=== PATIENT | male | born 1965 | race Caucasian/White ===

== ENCOUNTER 2022-05-25 02:08 | Day surgery (SDC) | payer OTHER, SELFPAY ==
[2022-05-24 12:40] VITALS: BMI 40.8
--- NOTE | 2022-05-25 10:30 | ECG_ITS ---
Measurements Intervals [place] Rate: 98 P: [place]: 0 QRS: -28 QRSD: 108 T: -16 QT: 379 QTc: 486 Interpretive Statements ATRIAL FIBRILLATION DELAYED PRECORDIAL R/S TRANSITION BORDERLINE T WAVE ABNORMALITY- INFERIOR LEADS ABNORMAL ECG NO PREVIOUS ECG AVAILABLE FOR COMPARISON Electronically Signed On 05-25-2022 10:56:30 CABINETMAKER HELPER by Nicholas Armenta D.O.
--- NOTE | 2022-05-25 10:45 | ECG_ITS ---
Measurements Intervals [place] Rate: 71 P: -21 CT: 195 QRS: -20 QRSD: 116 T: -5 QT: 409 QTc: 445 Interpretive Statements SINUS RHYTHM INCOMPLETE RIGHT BUNDLE BRANCH BLOCK DELAYED PRECORDIAL R/S TRANSITION BORDERLINE T WAVE ABNORMALITY- INFERIOR LEADS BASELINE ARTIFACT- I, II, AVR, AVF, V3 BORDERLINE ECG COMPARED TO ECG 05/25/2022 10:51:06 SINUS RHYTHM NOW PRESENT Electronically Signed On 05-25-2022 12:52:05 SOFTWARE DEVELOPMENT PROJECT MANAGER by Nicholas Armenta D.O.
[2022-05-25 10:53] VITALS: BMI 40.6
[2022-05-25 11:06] VITALS: BP 165/112; PULSE 92; RESP 14; TEMP 36.3; O2SAT 94
[2022-05-25 11:24] LABS: Anion Gap 8 mmol/L (8-16); Blood Urea Nitrogen 12 mg/dL (9-20); Calcium 8.9 mg/dL (8.4-10.2); Carbon Dioxide 30 mmol/L (22-30); Chloride 102 mmol/L (98-107); Estimated CRCL calculation 143 ml/min; Estimated Glomerular Filt Rate > 60; Glucose 112 mg/dL (65-110); Magnesium 1.8 mg/dL (1.6-2.3); Potassium 3.7 mmol/L (3.4-5.0); Sodium 140 mmol/L (137-145)
--- NOTE | 2022-05-25 12:09 | WPDANESEPPF ---
Anes - Initial Pre Proc Eval Procedure: Operation Date: 05/25/22 12:30 Proposed Procedures p Electrical Cardioversion - Parag Lorenzo MD Date/Time: 05/25/22 12:09 Surgeon: Parag Lorenzo MD Pre Op Diagnosis: A-fib Patient Data Age: 56 Gender: M Height: 1.93 m Weight: 151.4 kg Last Vital Signs Temp 97.3 F L 05/25/22 11:06 Pulse 92 05/25/22 11:06 Resp 14 05/25/22 11:06 BP 165/112 H 05/25/22 11:06 Pulse Ox 94 05/25/22 11:06 O2 Del Method Room Air 05/25/22 11:06 Allergies Allergy/AdvReac Type Severity Reaction Status Date / Time No Known Allergies Allergy Unknown Verified 05/24/22 13:01 Home Medications Medication Instructions Recorded Confirmed Type lisinopril 20 1 tablet PO DAILY 05/24/22 05/25/22 History mg-hydrochlorothiazide 25 mg tablet metoprolol tartrate 100 mg tablet 100 mg PO BID 05/24/22 05/25/22 History rivaroxaban 20 mg tablet (Xarelto) 20 mg PO DAILY 05/24/22 05/24/22 History valacyclovir 1 gram tablet 1,000 mg PO BID PRN fever blisters 05/24/22 05/24/22 History (Valtrex) Laboratory Tests 05/25/22 11:05 Sodium 140 mmol/L mmol/L (137-145) Potassium 3.7 mmol/L mmol/L (3.4-5.0) Chloride 102 mmol/L mmol/L (98-107) Carbon Dioxide 30 mmol/L mmol/L (22-30) Anion Gap 8 mmol/L mmol/L (8-16) BUN 12 mg/dL mg/dL (9-20) Creatinine 0.80 mg/dL mg/dL (0.7-1.3) Estim Creat Clear Calc 143 ml/min ml/min Estimated GFR > 60 (59 - ) Glucose 112 mg/dL H mg/dL (65-110) Calcium 8.9 mg/dL mg/dL (8.4-10.2) Magnesium 1.8 mg/dL mg/dL (1.6-2.3) Patient hx anesthesia problems: none Family hx anesthesia problems: none Results Review: All pre-operative results and documents have been reviewed as part of the pre-operative evaluation. [facility] Social History Social History Smoking status: Former smoker Tobacco type: cigarettes Second hand tobacco smoke exposure: No Additional smoking assessment comments: quit 20 years ago Alcohol intake: current Drinks per week: 1 Substance use: former Substance use type: marijuana Living arrangements: with family Spiritual care concerns: No Anes - Eval Final PreProcedure Day of Procedure 05/25/22 12:09 Patient weight: morbidly obese Heart: irregular rhythm Lungs: clear to auscultation Airway: Mallampati scale class III Neurological: alert and oriented Last oral intake: >/= 8 hours ASA classification: IV Emergent: no Anesthetic plan: proceed Anesthesia type and monitoring: general GIVS and standard monitoring Results Review: All pre-operative results and documents have been reviewed as part of the pre-operative evaluation. Informed Consent: The patient's anesthetic plan and its attendant risks and benefits were discussed with the patient/family/POA. Questions were solicited and answers provided to the satisfaction of the patient/family/POA.
--- NOTE | 2022-05-25 12:18 | WPDHPUPDATE1 ---
History and Physical Update Update Date/Time: 05/25/22 12:18 History and Physical has been reviewed, including an updated exam of the patient. There are NO changes in the patient's condition. Risks, benefits, and alternatives have been discussed and questions answered. Patient agrees to proceed with procedure.
--- NOTE | 2022-05-25 12:19 | WPDCARDVER ---
Cardioversion Cardioversion Date of procedure: 05/25/22 Procedure: Synchronized electrical cardioversion Pre-op diagnosis: Atrial fibrillation Post-op diagnosis: Other (Sinus rhythm) Indications: Sinus rhythm Description of procedure: Procedure start time: 12:14 Procedure end time: 12:24 Cardioversion procedure discussed with the patient, including procedural details, risks vs benefits, post-cardioversion care. Patient agrees to proceed with procedure. Written informed consent obtained. Patient taken to the endoscopy suite. Defibrillator pads placed in the anterior-posterior position. Time out performed. Sedation administered by the Anesthesiology team. Once patient was adequately sedation, synchronized electrical cardioversion was performed with 1 shock at 250 joules with mormonism of sinus rhythm. Patient remained hemodynamically stable throughout. Post-cardioversion EKG confirmed sinus rhythm as well. Patient tolerated procedure well. Sedation: Sedation administered by Dr. Quinteros with the Anesthesiology team. Findings: Successful mormonism of sinus rhythm with 1 shock at 250 joules. Conclusion: Successful synchronized electrical cardioversion.
[2022-05-25 12:35] VITALS: BP 155/106; PULSE 63; RESP 16; O2SAT 95
[2022-05-25 12:40] VITALS: BP 152/107; PULSE 64; RESP 18; O2SAT 96
[2022-05-25 12:45] VITALS: BP 151/101; PULSE 67; RESP 21; O2SAT 95
[2022-05-25 12:50] VITALS: BP 148/103; PULSE 64; RESP 13; O2SAT 95
[2022-05-25 12:55] VITALS: BP 153/95; PULSE 65; RESP 17; O2SAT 95
== END 2022-05-25 13:10 | disposition home or self-care (01) ==
PROVIDERS: PCP Family Medicine; Visit Provider Internal Medicine
PROC: 5A2204Z Restoration of Cardiac Rhythm, Single (ICD-10-PCS; principal; 2022-05-25 12:30)
DX: I48.91 Unspecified atrial fibrillation (principal); I45.10 Unspecified right bundle-branch block; R94.31 Abnormal electrocardiogram [ECG] [EKG]; I10 Essential (primary) hypertension; R06.02 Shortness of breath; R60.0 Localized edema; E78.5 Hyperlipidemia, unspecified; Z87.891 Personal history of nicotine dependence; F10.90 Alcohol use, unspecified, uncomplicated; F12.90 Cannabis use, unspecified, uncomplicated; E66.01 Morbid (severe) obesity due to excess calories; Z68.41 Body mass index [BMI] 40.0-44.9, adult; Z79.01 Long term (current) use of anticoagulants; Z82.49 Family history of ischemic heart disease and other diseases of the circulatory system
CPT/HCPCS: 36415; 80048; 83735; 92960; J2704

== ENCOUNTER 2023-09-20 09:01 | Outpatient (CLI) | payer OTHER, SELFPAY ==
[2023-09-25 14:18] VITALS: BMI 41.3
--- NOTE | 2023-09-25 14:18 | WPDHOMESLEEP ---
Sleep Study - Home Unattended Date of Study: 09/20/23 Ordering Provider: Cisco Randolph MD Interpreting Provider: Rabia Livingston, DO Home Sleep Study Type: Watch PAT Height: 1.93 m Weight: 154.221 kg Body Mass Index: 41.3 Neck Circumference (inches): 20 [place]: 7 Reason for Sleep Study Snoring Sleep History The patient is a 57-year-old male that had a sleep study ordered by his manager fitness for evaluation of sleep apnea. The patient occasionally awakens from sleep short of breath. He rarely awakens at night with heartburn, belching or cough. He frequently snores and is frequently loud enough that others complain. He rarely has trouble sleeping when he has a cold. He rarely wakes up gasping for air throughout the night. He denies having breathing problems at night observed by himself or others. He occasionally sweats excessively at night. He rarely has heart palpitations or irregular heartbeats during the night. He rarely falls asleep during the day and never while driving. He denies sleep paralysis and cataplexy. He rarely has trouble at school or work due to sleepiness. He rarely experiences vivid dreamlike scenes upon awakening or falling asleep. He denies feeling afraid of going to sleep. He rarely has nightmares. He occasionally remembers his dreams. He occasionally has thoughts racing through his mind. He rarely feels sad or depressed. He rarely has anxiety. He rarely has muscular tension. He denies noticing parts of his body jerk. He occasionally kicks during the night. He denies having crawling and aching feelings in his legs and denies having leg pain during the night. He denies grinding his teeth during sleep and denies awakening with morning jaw pain. He denies being bothered by pain during the day and denies being awakened by pain during the night. He denies waking up feeling stiff in the morning. He rarely wakes up with sore or achy muscles. He denies waking up with pain in the neck, spine or other joints. He goes to bed between 11:00 p.m. to 12:00 a.m. on both weekdays and weekends. It takes him less than 5 minutes to fall asleep. He wakes up 3-4 times throughout the night to change position or use restroom. He is able to fall back asleep within 10 minutes. He wakes up at 7:00 a.m. on weekdays and at 9:00 a.m. on the weekends. He typically gets 7 hours of sleep per night. He will stay in bed for 5-10 minutes after waking up in the morning. He currently lives with his and 2 adult children. He denies consuming any caffeinated beverages within 2 hours of bedtime. He denies engaging in physical exercise before bedtime. He denies reading before falling asleep. He will watch television before falling asleep. He will rarely take naps in the afternoon or the evening but they are not refreshing. He will have 1 large cup of caffeinated beverage per day. He quit smoking cigarettes 21 years ago. He consumes 1 or 2 alcoholic beverages per week. He will occasionally use cannabis gummies. [facility] Social History Social History Smoking status: Former smoker Tobacco type: cigarettes Second hand tobacco smoke exposure: No Additional smoking assessment comments: quit 20 years ago Alcohol intake: current Drinks per week: 1 Substance use: former Substance use type: marijuana Living arrangements: with family Spiritual care concerns: No Medications Home Medications Medication Instructions Recorded Confirmed Type lisinopril 20 1 tablet PO DAILY 05/24/22 05/25/22 History mg-hydrochlorothiazide 25 mg tablet metoprolol tartrate 100 mg tablet 100 mg PO BID 05/24/22 05/25/22 History rivaroxaban 20 mg tablet (Xarelto) 20 mg PO DAILY 05/24/22 05/24/22 History valacyclovir 1 gram tablet 1,000 mg PO BID PRN fever blisters 05/24/22 05/24/22 History (Valtrex) Sleep Procedure The sleep study was completed using [facility]
== END 2023-09-25 11:31 | disposition home or self-care (01) ==
LOC: ANHCSM 09:02
PROVIDERS: PCP Family Medicine; Visit Provider Internal Medicine Cardiovascular Disease
DX: G47.33 Obstructive sleep apnea (adult) (pediatric) (principal); I48.0 Paroxysmal atrial fibrillation; Z91.89 Other specified personal risk factors, not elsewhere classified
CPT/HCPCS: 95800

== ENCOUNTER 2023-10-12 00:04 | Day surgery (SDC) | payer OTHER, SELFPAY ==
[2023-10-11 12:16] VITALS: BMI 41.4
--- NOTE | 2023-10-12 09:00 | ECG_ITS ---
[facility] [address] Test Date: 2023-10-12 Pat Name: Warren Khanna Department: Room: Gender: M Aesthetics Instructor: ALBERT : 1965 Requested By: Radames Smith Order Number: [id number] Steve MD: Radames Aparicio M.D. Measurements Intervals [place] Rate: 82 P: 0 VT: 0 QRS: -23 QRSD: 112 T: -18 QT: 397 QTc: 466 Interpretive Statements ATRIAL FIBRILLATION LEFT AXIS DEVIATION [QRS AXIS < -20] NONSPECIFIC T-WAVE ABNORMALITY ABNORMAL RHYTHM ECG No previous ECG available for comparison Electronically Signed On 10-13-2023 07:42:46 CDT by Radames Aparicio M.D.
[2023-10-12 09:23] VITALS: BMI 40.8
[2023-10-12 09:24] VITALS: BP 162/103; PULSE 62; RESP 12; TEMP 36.2; O2SAT 98
[2023-10-12 09:52] LABS: Anion Gap 6 mmol/L (4-12); Blood Urea Nitrogen 12 mg/dL (9-20); Calcium 9.3 mg/dL (8.4-10.2); Carbon Dioxide 31 mmol/L (22-30); Chloride 102 mmol/L (98-107); Estimated CRCL calculation 142 ml/min; Estimated Glomerular Filt Rate > 60; Glucose 116 mg/dL (65-110); Magnesium 1.8 mg/dL (1.6-2.3); Potassium 3.8 mmol/L (3.4-5.0); Sodium 139 mmol/L (137-145)
--- NOTE | 2023-10-12 10:05 | ECG_ITS ---
[facility] [address] Test Date: 2023-10-12 Pat Name: Warren Khanna Department: Room: Gender: M Silviculture Teacher: ALBERT : 1965 Requested By: Radames Smith Order Number: [id number] Steve MD: Radames Aparicio M.D. Measurements Intervals [place] Rate: 64 P: -19 [place]: 236 QRS: -15 QRSD: 117 T: -11 QT: 438 QTc: 453 Interpretive Statements SINUS RHYTHM WITH FIRST DEGREE AV BLOCK INCOMPLETE RIGHT BUNDLE BRANCH BLOCK [90+ ms QRS DURATION, TERMINAL R IN V1/V2, 40+ ms S IN I/aVL/V4/V5/V6] ABNORMAL ECG Compared to ECG 10/12/2023 09:30:56 SINUS RHYTHM REPLACES ATRIAL FIBRILLATION Electronically Signed On 10-13-2023 07:44:39 CDT by Radames Aparicio M.D.
--- NOTE | 2023-10-12 10:25 | WPDANESEPPF ---
Anes - Initial Pre Proc Eval Procedure: Operation Date: 10/12/23 10:30 Proposed Procedures p Electrical Cardioversion - Radames Aparicio MD Date/Time: 10/12/23 10:25 Surgeon: Radames Aparicio MD Pre Op Diagnosis: a-fib Patient Data Age: 57 Gender: M Height: 1.93 m Weight: 152 kg Last Vital Signs Temp 36.2 C L 10/12/23 09:24 Pulse 62 10/12/23 09:24 Resp 12 10/12/23 09:24 BP 162/103 H 10/12/23 09:24 Pulse Ox 98 10/12/23 09:24 O2 Del Method Room Air 10/12/23 09:24 Allergies Allergy/AdvReac Type Severity Reaction Status Date / Time No Known Allergies Allergy Unknown Verified 10/11/23 12:11 Home Medications Medication Instructions Recorded Confirmed Type lisinopril 20 1 tablet PO DAILY 05/24/22 10/11/23 History mg-hydrochlorothiazide 25 mg tablet metoprolol tartrate 100 mg tablet 100 mg PO BID 05/24/22 10/11/23 History rivaroxaban 20 mg tablet (Xarelto) 20 mg PO DAILY 05/24/22 10/11/23 History valacyclovir 1 gram tablet 1,000 mg PO BID PRN fever blisters 05/24/22 10/11/23 History (Valtrex) terbinafine HCl 250 mg tablet 250 mg PO DAILY 10/11/23 10/11/23 History Laboratory Tests 10/12/23 09:34 Sodium 139 mmol/L (137-145) Potassium 3.8 mmol/L (3.4-5.0) Chloride 102 mmol/L (98-107) Carbon Dioxide 31 H mmol/L (22-30) Anion Gap 6 mmol/L (4-12) BUN 12 mg/dL (9-20) Creatinine 0.80 mg/dL (0.7-1.3) Estim Creat Clear Calc 142 ml/min Estimated GFR > 60 (59 - ) Glucose 116 H mg/dL (65-110) Calcium 9.3 mg/dL (8.4-10.2) Magnesium 1.8 mg/dL (1.6-2.3) Patient hx anesthesia problems: none Family hx anesthesia problems: none Results Review: All pre-operative results and documents have been reviewed as part of the pre-operative evaluation. [facility] Social History Social History Smoking status: Former smoker Tobacco type: cigarettes Second hand tobacco smoke exposure: No Smoking end date: 10/06/03 Additional smoking assessment comments: quit 20 years ago Alcohol intake: never Drinks per week: 1 Substance use: former Substance use type: does not use Living arrangements: with family Spiritual care concerns: No Anes - Eval Final PreProcedure Day of Procedure 10/12/23 10:25 Patient weight: morbidly obese Heart: irregular rhythm Lungs: clear to auscultation Airway: Mallampati scale class II Neurological: alert and oriented Last oral intake: >/= 8 hours ASA classification: III Emergent: no Anesthetic plan: proceed Anesthesia type and monitoring: general GIVS and standard monitoring Results Review: All pre-operative results and documents have been reviewed as part of the pre-operative evaluation. Informed Consent: The patient's anesthetic plan and its attendant risks and benefits were discussed with the patient/family/POA. Questions were solicited and answers provided to the satisfaction of the patient/family/POA.
--- NOTE | 2023-10-12 10:43 | WPDCARDPROC ---
Cardiac Cath Procedure Note Date of procedure:: 10/12/23 Performing physician:: Radames Aparicio MD Indication:: Recurrent, symptomatic atrial fibrillation Brief clinical history:: this is a 57-year-old man with a history of atrial fibrillation having been cardioverted previously. He also has morbid obesity and sleep apnea which is currently untreated. He is being scheduled today for a attempt at repeat DC cardioversion because of recurrent symptomatic AF. He is waiting for a new CPAP device to be delivered to his home Procedure Procedure performed:: DC cardioversion Sedation/Medication given:: sedation per Anesthesia see their separately dictated note Estimated blood loss:: no blood loss Procedure note:: patient was brought to the postanesthesia recovery unit in the cardiac catheterization lab. He was in the supine position in the postabsorptive state. Defibrillator patches were placed in the AP position. The device was synchronized at 200 joules output. He was then sedated by the anesthesia service. When he was adequately sedated he received a 200 joule synchronized countershock with no change in his cardiac rhythm. He was still sedated and so the energy of the defibrillator was increased to 360 joules and synchronized shock at this energy converted him to sinus rhythm. Findings:: As above Conclusion:: 1. successful uncomplicated DC cardioversion terminating AFib, restoring sinus rhythm but requiring 360 joules of energy to successfully cardiovert Radames Aparicio MD [facility]
[2023-10-12 10:45] VITALS: BP 181/115; PULSE 65; RESP 14; O2SAT 100
[2023-10-12 11:00] VITALS: BP 154/105; PULSE 60; RESP 18; O2SAT 98
[2023-10-12 11:15] VITALS: BP 156/104; PULSE 62; RESP 14; O2SAT 98
[2023-10-12 11:30] VITALS: BP 159/108; PULSE 59; RESP 17; O2SAT 97
[2023-10-12 11:45] VITALS: BP 155/102; PULSE 63; RESP 13; O2SAT 98
== END 2023-10-12 11:50 | disposition home or self-care (01) ==
PROVIDERS: PCP Family Medicine; Visit Provider Specialist
PROC: 5A2204Z Restoration of Cardiac Rhythm, Single (ICD-10-PCS; principal; 2023-10-12 10:30)
DX: I48.19 Other persistent atrial fibrillation (principal); I10 Essential (primary) hypertension; E78.5 Hyperlipidemia, unspecified; G47.39 Other sleep apnea; I77.810 Thoracic aortic ectasia; E66.01 Morbid (severe) obesity due to excess calories; Z68.41 Body mass index [BMI] 40.0-44.9, adult; Z87.891 Personal history of nicotine dependence; Z79.01 Long term (current) use of anticoagulants
CPT/HCPCS: 36415; 80048; 83735; 92960; J2704; J7030

== ENCOUNTER 2024-07-31 09:31 | Outpatient (CLI) | payer OTHER, SELFPAY ==
--- NOTE | ~2024-07-31 | CT_ITS ---
EXAMINATION: CT diagnostic chest w con DATE: 07/31/2024 10:01 INDICATION: Aortic root dilation. TECHNIQUE: Computed tomography (CT) of the chest was performed without intravenous contrast. The dose -length product was 1001.40 mGy-cm. COMPARISON: None FINDINGS: Aortic root is dilated measuring 4.6 cm. No evidence for aortic dissection. There is mild a therosclerosis. No thoracic lymphadenopathy. No significant pleural or pericardial effusion. There is left ventricular hypertrophy. No significant pleural effusion. There are 3 mm right upper lobe nodul es. There is calcified granuloma of the left fissure. No endobronchial lesions. No pneumothorax. No f ocal airspace consolidation. There is 3 mm right lower lobe nodule. Mild thoracic spondylosis. No foc al lytic or blastic lesions. IMPRESSION: 1. Dilated aortic root measuring 4.6 cm. Reviewed, dictated and finalized at location A.
[2024-07-31 09:56] LABS: Estimated Glomerular Filt Rate > 60
--- OUTSIDE RECORDS SUMMARY | 2024-07-31 10:11 | XMS_ITS | Referral Summary ---
Author Organization [address] Address [address] [address] Care Team Providers Care Counter Person Name Role Phone Shashi Winter MD Primary Care Provid er Encounters Date Type Department Care Team Description 05/14/2024 3:45 PM HOSPICE NURSE PRACTITIONER Office Visit [facility] Cardiology [address] [place] [address] Cisco Randolph MD Benign essential hypertension (Primary Dx); Chronic anticoagulation; PAF (paroxysmal atrial fibrillation) (HCC); Dyslipidemia; Bilateral lower extremity edema; Aortic root dilatation; JAY JAY (obstructive sleep apnea) from Last 3 Months Allergies No known active allergies Medications Xarelto 20 mg tabletIndication s:New onset atrial fibrillation (HCC) TAKE 1 TABLET DAILY WITH DINNER 30 tablet 11 4 Active lisinopril-hydro CHLOROthiazide (ZESTORETIC) 20-25 mg per tabletIndication s:hypertension Take 1 tablet by mouth daily 90 tablet 3 5 026 Active metoprolol (LOPRESSOR) 100 mg tabletIndication s:New onset atrial fibrillation (HCC) TAKE 1 TABLET TWICE A DAY 180 tablet 3 5 Active valACYclovir (VALTREX) 1 gram tablet TAKE 1 TABLET TWICE A DAY NEEDED (FOR FEVER BLISTER) 12 tablet 59 5 Active valACYclovir (VALTREX) 1 gram tablet Take 1 tablet (1,000 mg total) by mouth 2 (two) times a day as needed (fever blister) 12 tablet 3 4 025 Discontinued Active Problems Problem Noted Date Diagnosed Date Aortic root dilatation 05/14/2024 JAY JAY (obstructive sleep apnea) 05/14/2024 Chronic anticoagulation 08/24/2022 PAF (paroxysmal atrial fibrillation) 04/17/2022 Bilateral lower extremity edema 03/29/2021 Erectile dysfunction 05/29/2017 Benign essential hypertension 09/05/2016 Dyslipidemia 09/05/2016 Fever blister 09/05/2016 Resolved Problems Problem Noted Date Diagnosed Date Resolved Date Morbid obesity with BMI of 40.0-44.9, adult 03/29/2021 09/04/2023 Immunizations Immunization Administration Dates Next Due Influenza, Unspecified 04/11/2023(Deferr ed: Patient Refused),04/28/2022(Deferred: Patient Refused) Pfizer SARS-CoV-2 Monovalent Vaccination (12+ Yrs) PURPLE 08/15/2020,07/23/2020 Tdap 09/04/2023 ZOSTER Recombinant 09/04/2023 Social History Tobacco Use Types Packs/Day Years Used Date Smoking Tobacco: Former Cigarettes Smokeless Tobacco: Never Tobacco Cessation:Counseling Given: Not Answered Alcohol Use Standard Drinks/Week Comments Not Currently 0 (1 standard drink = 0.6 oz pur e alcohol) AUDIT-C Answer Date Recorded Q1: How often do you have a drink containing alc ohol? 2-4 times a month 12/24/2020 Q2: How many drinks containi ng alcohol do you have on a typical day when you are drinking? 1 or 2 12/24/2020 Q3: How often do you have si x or more drinks on one occasion? Never 12/24/2020 PHQ-2 Answer Date Recorded PHQ-2 Total Score 0 09/04/2023 Sex and Gender Information Value Date Recorded Sex Assigned at Not on file Legal Sex Male 1:28 AM HOSPICE NURSE PRACTITIONER Gender Identity Not on file Sexual Orientation Not on file Last Filed Vital Signs Vital Sign Reading Time Taken Comments Blood Pressure 140/88 05/14/2024 4:19 PM HOSPICE NURSE PRACTITIONER Pulse 61 05/14/2024 4:19 PM HOSPICE NURSE PRACTITIONER Temperature 36.7 C (98 F) 09/18/2023 9:31 AM CDT Respiratory Rate 20 09/18/2023 9:31 AM CDT Oxygen Saturation 96% 05/14/2024 4:19 PM HOSPICE NURSE PRACTITIONER Inhaled Oxygen Concentration - - Weight 156 kg (344 lb) 05/14/2024 4:19 PM HOSPICE NURSE PRACTITIONER Height 188 cm (6' 2 ) 05/14/2024 4:19 PM HOSPICE NURSE PRACTITIONER Body Mass Index 44.17 05/14/2024 4:19 PM HOSPICE NURSE PRACTITIONER Plan of Treatment Not on file Procedures Procedure Name Priority Date/Time Associated Diagnosis Comments PSA SCREEN Routine 09/04/2023 10:45 AM CDT Screening for prostate cancer from Last 3 Months or Most Recently Relevant to Health Maintenance Results * (ABNORMAL) PSA screen (09/04/2023 10:45 AM CDT) PSA-Total 8.18(H) <=3.90 ng/mL Comment: Interpretive Data AGE SEX REFERENCE INTERVAL 0 minutes-150 years Female None 0 minutes-49 years Male None 50-59 years Male 0-3.90 60-69 years Male 0-5.40 70-79 years Male 0-6.20 80-150 years Male 0-6.20 The Jennifer PSA Total assay procedure was used. Results from different manufacturers or methods may not be comparable. Serial testing should be performed using the same method. Current interpretive data last revised 21. Testing performed by: [facility], [address] [place] [address]., [id number] Blood 09/04/2023 10:4 5 AM CDT 09/04/2023 12:02 PM CDT us Shashi Winter MD LAB BLOOD ORDERABLES Final Result JUDITH [address] [facility] Department [place] [address] from Last 3 Months or Most Recently Relevant to Health Maintenance Insurance [facility] CHOICE PLUS [facility] H[facility]/PPO Address: [address] [place] [phone] [facility] CHOICE PLUS [facility] H[facility]/PPO Address: [address] [place] [address] Care Teams Counter Person Relationship Specialty Start Date End Date Shashi Winter MD [address] [place] [address] PCP - General Family Medicine 08/08/18
--- OUTSIDE RECORDS SUMMARY | 2024-07-31 10:11 | XMS_ITS | Clinical Summary ---
Author Organization [address] Address [address] [address] Care Team Providers Care Commercial Ocean Clammer Name Role Phone Shashi Winter MD Primary Care Provid er Allergies No known active allergies Medications Xarelto [...] with BMI of 40.0-44.9, adult 03/29/2021 09/04/2023 Encounters Date Type Department Care Team Description 05/14/2024 3:45 PM STRINGER UP SOLDERING MACHINE Office Visit [facility] Cardiology [address] [place] [address] Cisco Randolph MD Benign essential hypertension (Primary Dx); Chronic anticoagulation; PAF (paroxysmal atrial fibrillation) (HCC); Dyslipidemia; Bilateral lower extremity edema; Aortic root dilatation; JAY JAY (obstructive sleep apnea) from Last 3 Months Immunizations Immunization Administration Dates Next Due Influenza, Unspecified 04/11/2023(Deferr ed: Patient Refused),04/28/2022(Deferred: Patient Refused) Pfizer SARS-CoV-2 Monovalent Vaccination (12+ Yrs) PURPLE 08/15/2020,07/23/2020 Tdap 09/04/2023 ZOSTER Recombinant 09/04/2023 Medical History Medical History Date Comments Hypertension Hyperlipidemia Family History Medical History Relation Name Comments Diabetes Father Heart disease Father Hypertension Father Pancreatitis Mother Relation Name Status Comments Father Mother Alive Social History Tobacco Use Types Packs/Day Years [...] on file Legal Sex Male 1:28 AM STRINGER UP SOLDERING MACHINE Gender Identity Not on file Sexual Orientation Not on file Obstetrics History Last Filed Vital Signs Vital Sign Reading Time Taken Comments Blood Pressure 140/88 05/14/2024 4:19 PM STRINGER UP SOLDERING MACHINE Pulse 61 05/14/2024 4:19 PM STRINGER UP SOLDERING MACHINE Temperature 36.7 C (98 F) 09/18/2023 9:31 AM CDT Respiratory Rate 20 09/18/2023 9:31 AM CDT Oxygen Saturation 96% 05/14/2024 4:19 PM STRINGER UP SOLDERING MACHINE Inhaled Oxygen Concentration - - Weight 156 kg (344 lb) 05/14/2024 4:19 PM STRINGER UP SOLDERING MACHINE Height 188 cm (6' 2 ) 05/14/2024 4:19 PM STRINGER UP SOLDERING MACHINE Body Mass Index 44.17 05/14/2024 4:19 PM STRINGER UP SOLDERING MACHINE Plan of Treatment Health Maintenance Due Date Last Done Comments Colon Cancer Screening-DNA Stool 1965 Hepatitis C Screening 1965 Hepatitis B Screening 10/24/1983 Zoster Vaccine (2 of 2) 10/30/2023 09/04/2023 Covid-19 Vaccine ( - season) 2024 08/15/2020, 07/23/2020 Influenza Vaccine (#1) 2024 Depression Screening 09/03/2024 09/04/2023, 12/24/2020, 08/16/2020 Regular Well Visit/Exam 18-64 09/03/2024 09/04/2023, 09/04/2023, 08/16/2020, Additional history exists Prostate Cancer Screening-PSA 09/03/2025 09/04/2023, 05/29/2017 DTaP/Tdap/Td Vaccine (2 - Td or Tdap) 09/03/2033 09/04/2023 Pneumococcal vaccine <65 Aged Out No longer eligible based on patient's age to complete this topic Procedures Procedure Name Priority Date/Time Associated Diagnosis [...] revised 21. Testing performed by: [facility], [address] [place] [address]., [id number] Blood 09/04/2023 10:4 5 AM CDT 09/04/2023 12:02 PM CDT Shashi Winter MD LAB BLOOD ORDERABLES Final Result Performing Organization Address City/State/[facility] Co de Phone Number JUDITH [phone] [facility] Department [place] [address] from Last 3 Months or Most Recently Relevant to Health Maintenance Insurance [facility] CHOICE PLUS [facility] PL[facility] Care Teams Commercial Ocean Clammer Relationship Specialty Start Date End Date Shashi Winter MD [facility] [address] [place] [id number] PCP - General Family Medicine 08/08/18
== END 2024-07-31 09:32 | disposition home or self-care (01) ==
PROVIDERS: PCP Family Medicine; Visit Provider Internal Medicine Cardiovascular Disease
DX: I77.819 Aortic ectasia, unspecified site (principal)
CPT/HCPCS: 71260; Q9967

== ENCOUNTER 2024-08-21 00:17 | Day surgery (SDC) | payer OTHER, SELFPAY ==
[2024-08-20 11:25] VITALS: BMI 42.5
--- OUTSIDE RECORDS SUMMARY | 2024-08-21 00:19 | XMS_ITS | Encounter Summary ---
Author Organization [facility] Healthcare Address [address] [place] [address] Care Team Providers Care Purchasing Administrator Name Role Phone Shashi Winter MD Primary Care Provid er Encounter Details Date Type Department Care Team (Late st Contact Info) Description 08/06/2024 Results Follow-Up 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
--- OUTSIDE RECORDS SUMMARY | 2024-08-21 00:19 | XMS_ITS | Encounter Summary ---
Author Organization [facility] Healthcare Address [address] [place] [address] Care Team Providers Care Export Freight Clerk Name Role Phone Shashi Winter MD Primary Care Provid er Encounter Details Date Type Department Care Team (Late st Contact Info) Description 08/15/[address] 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 Randolph for review. * Telephone Encounter - Rosana Gomez - 08/15/2024 3:41 PM CDT Pt requesting a call back to discuss the possibility of getting Ozempic instead of tirzepatide, weight loss, (Zepbound) 2.5 mg/0.5 mL pen injector since his insurance will cover the Ozempic. Please advise Thank you Contact: documented in this encounter Plan of Treatment Not on file documented as of this encounter Visit Diagnoses Not on filedocumented in this encounter Care Teams Export Freight Clerk Relationship Specialty Start Date End Date Shashi Winter MD [address] [place] [address] PCP - General Family Medicine 08/08/18 documented as of this encounter
--- OUTSIDE RECORDS SUMMARY | 2024-08-21 00:19 | XMS_ITS | Referral Summary ---
Author Organization [address] Address [address] [address] Care Team Providers Care College Sports Coach Name Role Phone Shashi Winter MD Primary Care Provid er Encounters Date Type Department Care Team Description 08/15/2024 Telephone [facility] Medical [facility] Cardiology [address] [place] [phone] Cisco Randolph MD 08/15/2024 Telephone [facility] Cardiology [address] [facility] Advanced Medicine [address]th [place] [address] [place] [phone] Leo Mckenzie MD 08/13/2024 Telephone [facility] Medical [facility] Cardiology [address] [facility] [address] [place] [phone] Madeleine Peña NP 08/13/2024 9:30 AM CDT Office Visit [facility] Cardiology [address] [place] [address] [address] [place] [phone] Lyudmila Link NP Obesity, Class III, BMI 40-49.9 (morbid obesity) (HCC) (Primary Dx); Hyperlipidemia LDL goal <100; Benign essential hypertension; PAF (paroxysmal atrial fibrillation) (HCC); Chronic anticoagulation; Aortic root dilatation; JAY JAY (obstructive sleep apnea) 08/06/2024 Results Follow-Up [facility] Cardiology [address] [place] [address] Cisco Randolph MD 07/31/2024 Orders Only [facility] Information [facility] [address] [place] [address] Cisco Randolph MD from Last 3 Months Allergies No known active allergies Medications Xarelto 20 mg tabletIndications :New onset atrial fibrillation (HCC) TAKE 1 TABLET DAILY WITH DINNER 30 tablet 11 09/14/2023 Active lisinopril-hydroC HLOROthiazide (ZESTORETIC) 20-25 mg per tabletIndications :hypertension Take 1 tablet by mouth daily 90 tablet 3 05/14/2024 05/14/19 26 Active metoprolol (LOPRESSOR) 100 mg tabletIndications :New onset atrial fibrillation (HCC) TAKE 1 TABLET TWICE A DAY 180 tablet 3 06/10/2024 Active valACYclovir (VALTREX) 1 gram tablet TAKE 1 TABLET TWICE A DAY NEEDED (FOR FEVER BLISTER) 12 tablet 59 07/02/2024 Active tirzepatide, weight loss, (Zepbound) 2.5 mg/0.5 mL pen injectorIndicatio ns:Obesity, Class III, BMI 40-49.9 (morbid obesity) (HCC) Inject 0.5 mL (2.5 mg total) under the skin every 7 days 2 mL 1 08/13/2024 Active atorvastatin (LIPITOR) 40 mg tabletIndications :Hyperlipidemia LDL goal <100 Take 1 tablet (40 mg total) by mouth daily 30 tablet 11 08/13/2024 08/14/19 26 Active Active Problems Problem Noted Date Diagnosed Date [...] on file 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 Gender Identity Not on file Sexual Orientation Not on file Last Filed Vital Signs Vital Sign Reading Time Taken Comments Blood Pressure 138/82 08/13/2024 9:34 AM CDT Pulse 70 08/13/2024 9:34 AM CDT Temperature 36.7 C (98 F) 09/18/2023 9:31 AM CDT Respiratory Rate 20 09/18/2023 9:31 AM CDT Oxygen Saturation 96% 08/13/2024 9:34 AM CDT Inhaled Oxygen Concentration - - Weight 154.7 kg (341 lb) 08/13/2024 9:34 AM CDT Height 188 cm (6' 2 ) 08/13/2024 9:34 AM CDT Body Mass Index 43.78 08/13/2024 9:34 AM CDT Plan of Treatment Not on file Procedures Procedure Name Priority Date/Time Associated Diagnosis Comments ELECTROCARDIOGRAM REPORT Routine 025 12:17 PM CDT PAF (paroxysmal atrial fibrillation) (HCC) POCT LIPID PANEL Routine 08/13/2024 9:36 AM CDT Hyperlipidemia LDL goal <100 SCAN - RADIOLOGY/IMAGING 07/31/2024 PSA SCREEN Routine 09/04/2023 10:45 AM CDT Screening for prostate cancer from Last 3 Months or Most Recently Relevant to Health Maintenance Results * Electrocardiogram Report (08/13/2024 12:17 PM CDT) Lyudmila Link NP ECG ORDERABLES Final Result * POCT lipid panel (08/13/2024 9:36 AM CDT) Cholesterol, POC 200 mg/dL HDL, POC 26 mg/dL Triglycerides, POC 175 mg/dL LDL Cholesterol POC 139 mg/dL Chol/HDL Ratio, POC 5.3 Non-HDL Cholesterol, POC 174 mg/dL Cholesterol Total, POC 200 mg/dL Capillary blood 08/13/2024 9 :36 AM CDT Lyudmila Link NP POINT OF CARE TEST ORDERABLE S Final Result * SCAN - RADIOLOGY/IMAGING (07/31/2024) Anatomical Region Laterality Modality Other Cisco Randolph MD Final Res ult * (ABNORMAL) PSA screen (09/04/2023 10:45 AM [...] data last revised 21. Testing performed by: [facility], [address] [place] [address]., [id number] Blood 09/04/2023 10:4 5 AM CDT 09/04/2023 12:02 PM CDT Shashi Winter MD LAB BLOOD ORDERABLES Final Result Performing Organization Address City/State/[facility] Co sd Phone Number JUDITH MH [address] [facility] Department [place] [address] from Last 3 Months or Most Recently Relevant to Health Maintenance Insurance [facility] CHOICE PLUS [facility] CHOICE PLUS [facility] PLUS Care Teams College Sports Coach Relationship Specialty Start Date End Date Shashi Winter MD [address] [place] [address] PCP - General Family Medicine 08/08/18
--- OUTSIDE RECORDS SUMMARY | 2024-08-21 00:19 | XMS_ITS | Clinical Summary ---
Author Organization [address] Address [address] [address] Care Team Providers Care Financial Compliance Officer Name Role Phone Shashi Winter MD Primary [...] Type Department Care Team Description 08/15/2024 Telephone [facility] Cardiology [address] [place] [address] [address] [place] [phone] Cisco Randolph MD 08/15/2024 Telephone [facility] Cardiology [address] [facility] 8th [place] [address] [place] [phone] Leo Mckenzie MD 08/13/2024 9:30 AM CDT Office Visit [facility] Cardiology [address] [place] [address] [address] [place] [phone] Lyudmila Link NP Obesity, Class III, BMI 40-49.9 (morbid obesity) (HCC) (Primary Dx); Hyperlipidemia LDL goal <100; Benign essential hypertension; PAF (paroxysmal atrial fibrillation) (HCC); Chronic anticoagulation; Aortic root dilatation; JAY JAY (obstructive sleep apnea) 08/13/2024 Telephone [facility] Cardiology [address] [place] [address] [address] [place] [phone] Madeleine Peña NP 08/06/2024 Results Follow-Up [facility] Cardiology [address] [place] [address] [address] [place] [phone] Cisco Randolph MD 07/31/2024 Orders Only [facility] Information Management [address] [place] [phone] Cisco Randolph MD from Last 3 Months Immunizations Immunization Administration [...] on file 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 Gender Identity Not on file Sexual Orientation [...] 08/13/2024 9:34 AM CDT Plan of Treatment Health Maintenance Due Date Last Done Comments Colon Cancer Screening-DNA Stool 1965 Hepatitis C Screening 1965 Hepatitis B Screening 10/24/1983 Zoster Vaccine (2 of 2) 10/30/2023 09/04/2023 Covid-19 Vaccine (3 - 4-25 season) 2024 08/15/2020, 07/23/2020 Depression Screening 09/03/2024 09/04/2023, 12/24/2020, 08/16/2020 Regular Well Visit/Exam 18-64 09/03/2024 09/04/2023, 09/04/2023, 08/16/2020, Additional history exists Influenza Vaccine (Season Ended) 2025 Prostate Cancer Screening-PSA 09/03/2025 09/04/2023, 05/29/2017 DTaP/Tdap/Td [...] RADIOLOGY/IMAGING (07/31/2024) Anatomical Region Laterality Modality Other us Cisco Randolph MD Final Res ult * [...] data last revised 21. Testing performed by: [facility], [address] [place] [address]., [id number] Blood 09/04/2023 10:4 5 AM CDT 09/04/2023 12:02 PM CDT Shashi Winter MD LAB BLOOD ORDERABLES Final Result Performing Organization Address City/State/[facility] Co de Phone Number CERNER MH [address] [facility] Department [place] [address] from Last 3 Months or Most Recently Relevant to Health Maintenance Insurance [facility] CHOICE PLUS [facility] HMO/PPO Address: [address] [address] [place] [address] [facility] CHOICE PLUS [facility] HMO/PPO Address: [address] [place] [address] [facility] CHOICE PLUS [facility] HMO/PPO Address: [address] [address] [place] [address] Care Teams Financial Compliance Officer Relationship Specialty Start Date End Date Shashi Winter MD [address] [place] [address] PCP - General Family Medicine 08/08/18
--- OUTSIDE RECORDS SUMMARY | 2024-08-21 00:19 | XMS_ITS | Encounter Summary ---
Author Organization [facility] Address [address] [place] [address] Phone Care Team Providers Care Strip Machine Operator Name Role Phone Shashi Winter MD Primary Care Provid er Encounter Details Date Type Department Care Team (Late st Contact Info) Description 08/15/2024 Telephone [facility] Cardiology [address] [facility] Advanced [facility] 8th [place] [address] [place] [phone] Leo Mckenzie MD [address] 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 * Telephone Encounter - Ollie Heard - 08/19/2024 8:51 AM CDT Patient has not returned our call to schedule so an UTR letter has been sent out. * Telephone Encounter - Anita Gardner - 08/15/2024 11:09 AM CDT Diagnosis/Reason for Appointment: I48.0 (ICD-10-CM) - PAF (paroxysmal atrial fibrillation) (HCC) Discuss Options Referring Physician: AI ECHEVARRIA NP Ref Ph: If Referring MD is not PCP, list specialty: [facility] Triage Questions Yes No Who/Where/When/Notes Are you actively undergoing cancer treatments including radiation, chemotherapy, or immunotherapy or are these planned in the near future? [] [x] If 'Yes', Schedule first available with Cardio-Oncology If yes where are you being treated? Have you ever seen a Contract Coordinator in an office setting? [x] [] DR PRASHANT BERRIOS PT WAS LAST SEEN IN JUN 2024 RECENTLY SAW TONI HINKLE IN [place] IF SCHEDULING PATIENT WITH MATERNAL Have you had a baby in the last year or are you ? (If yes send to Dr. Canales for review) [] [] Have you had heart or blood pressure problems during a previous ? (If yes send to Dr. Canales for review) [] [] Dr. Hayde Barr Patients only: Are you a hemodialysis or peritoneal dialysis patient? (If yes then patient must be referred from another MD, DO NOT SCHEDULE) [] [] Do you regularly exercise, or play any competitive or recreational sports? (If yes proceed to next question) [] [] PT IS TRYING, BUT IS HINDERED BY HIS AFIB SYMPTOMS. Are your symptoms or concerns associated with this exercise or activity? (If yes schedule in [facility]icine [facility]) [] [] Patient History Questions Yes No Where/When/Notes Have you EVER been hospitalized for ANY cardiac issue? [] [x] Have you ever had any cardiac testing, imaging, or procedures? (Testing - echo, EKG, stress) (Imaging - Cardiac MRI, CT or calcium scoring) (Procedure - Ablation, Cardioversion, CABG, Cath) [x] [] [facility] ECHO EKG STRESS TEST - [place] CARDIAC CT CARDIOVERSION HAS BEEN COMPLETED TWICE FOR AFIB IN THE PAST WANTING TO SCHEDULE A 3RD ATTEMPT Have you ever had a sleep study? [x] [] [facility] PT DID AN AT HOME STUDY PT DOES HAVE SLEEP APNEA PT DOES HAVE A CPAP Do you have a device? If yes what type? (Pacemaker, Defibrillator, Implanted Loop Recorder) [] [x] If yes, where and when was device put in? Paper Latcher? ([employer], [employer], [employer]) Appointment Date: Provider: RIVKA Location: [] Confirm appt date, time, provider and location. [] Advise pt to arrive 15-20 min early. [] Advise patient to bring medications/list, photo ID and insurance card [] Advise of New Patient Packet being mailed to them. documented in this encounter Plan of Treatment Not on file documented as of this encounter Visit Diagnoses Not on filedocumented in this encounter Care Teams Strip Machine Operator Relationship Specialty Start Date End Date Shashi Winter MD [address] [place] [id number] PCP - General Family Medicine 08/08/18 documented as of this encounter
--- NOTE | 2024-08-21 09:00 | ECG_ITS ---
Test Date: 2024-08-21 09:18:27 Measurements Intervals [place] Rate: 72 P: 0 [place]: 0 QRS: -17 QRSD: 125 T: -17 QT: 407 QTc: 447 Interpretive Statements ATRIAL FIBRILLATION INTRAVENTRICULAR CONDUCTION DELAY BORDERLINE T WAVE ABNORMALITY- INFERIOR LEADS BASELINE ARTIFACT- II, III, AVR, AVF, V5-V6 ABNORMAL ECG Compared to ECG 10/12/2023 10:36:48 SINUS RHYTHM NO LONGER PRESENT Electronically Signed On 08-21-2024 09:31:39 CDT by Nicholas Armenta D.O.
[2024-08-21 09:22] VITALS: BP 150/101; PULSE 74; RESP 13; TEMP 36.2; O2SAT 98
--- NOTE | 2024-08-21 10:00 | ECG_ITS ---
Test Date: 2024-08-21 10:30:01 Measurements Intervals [place] Rate: 62 P: -22 [place]: 256 QRS: -19 QRSD: 118 T: -12 QT: 433 QTc: 442 Interpretive Statements SINUS RHYTHM WITH FIRST DEGREE AV BLOCK POSSIBLE LEFT ATRIAL ENLARGEMENT INCOMPLETE RIGHT BUNDLE BRANCH BLOCK BORDERLINE T WAVE ABNORMALITY- INFERIOR LEADS BORDERLINE ECG Compared to ECG 08/21/2024 09:18:27 Atrial fibrillation no longer present Electronically Signed On 08-21-2024 10:57:37 CDT by Nicholas Armenta D.O.
[2024-08-21 10:06] LABS: Anion Gap 10 mmol/L (4-12); Blood Urea Nitrogen 14 mg/dL (9-20); Calcium 9.4 mg/dL (8.4-10.2); Carbon Dioxide 31 mmol/L (22-30); Chloride 99 mmol/L (98-107); Estimated CRCL calculation 141 ml/min; Estimated Glomerular Filt Rate > 60; Glucose 116 mg/dL (65-110); Magnesium 1.9 mg/dL (1.6-2.3); Potassium 3.8 mmol/L (3.4-5.0); Sodium 140 mmol/L (137-145)
--- NOTE | 2024-08-21 10:09 | P.PNAN_ITS ---
Anes - Initial Pre Proc Eval Procedure: Operation Date: 08/21/24 10:30 Proposed Procedures p Electrical Cardioversion - Evans Stinson MD Date/Time: 08/21/24 10:09 Surgeon: Evans Stinson MD Pre Op Diagnosis: a-fib Patient Data Age: 58 Gender: M Height: 1.91 m Weight: 141.2 kg Last Vital Signs Temp 36.2 C L 08/21/24 09:22 Pulse 74 08/21/24 09:22 Resp 13 08/21/24 09:22 BP 150/101 H 08/21/24 09:22 Pulse Ox 98 08/21/24 09:22 O2 Del Method Room Air 08/21/24 09:22 Allergies Allergy/AdvReac Type Severity Reaction Status Date / Time No Known Allergies Allergy Unknown Verified 08/20/24 11:24 Home Medications ?Medication ?Instructions ?Recorded ?Confirmed ?Type lisinopril 20 1 tablet PO DAILY 05/24/22 08/20/24 History mg-hydrochlorothiazide 25 mg tablet metoprolol tartrate 100 mg tablet 100 mg PO BID 05/24/22 08/20/24 History rivaroxaban 20 mg tablet (Xarelto) 20 mg PO DAILY 05/24/22 08/20/24 History valacyclovir 1 gram tablet 1,000 mg PO BID PRN fever blisters 05/24/22 08/20/24 History (Valtrex) atorvastatin 40 mg tablet 40 mg PO DAILY 08/20/24 08/20/24 History Laboratory Tests 08/21/24 09:20 Sodium 140 mmol/L (137-145) Potassium 3.8 mmol/L (3.4-5.0) Chloride 99 mmol/L (98-107) Carbon Dioxide 31 H mmol/L (22-30) Anion Gap 10 mmol/L (4-12) BUN 14 mg/dL (9-20) Creatinine 0.75 mg/dL (0.7-1.3) Estim Creat Clear Calc 141 ml/min Estimated GFR > 60 (59 - ) Glucose 116 H mg/dL (65-110) Calcium 9.4 mg/dL (8.4-10.2) Magnesium 1.9 mg/dL (1.6-2.3) Patient hx anesthesia problems: none Family hx anesthesia problems: none Results Review: All pre-operative results and documents have been reviewed as part of the pre- operative evaluation. [facility] Past Medical History Medical History Obesity Hyperlipidemia Essential hypertension Atrial fibrillation JAY JAY (obstructive sleep apnea) Social History Social History Smoking status: Former smoker Tobacco type: cigarettes Second hand tobacco smoke exposure: No Smoking end date: 08/13/01 Additional smoking assessment comments: quit 20 years ago Alcohol intake: current Drinks per week: 1 Substance use: former Substance use type: marijuana Living arrangements: with family Spiritual care concerns: No Anes - Eval Final PreProcedure Day of Procedure 08/21/24 10:09 Patient weight: obese Heart: irregular rhythm Lungs: clear to auscultation Airway: Mallampati scale class II Neurological: alert and oriented Last oral intake: >/= 8 hours ASA classification: III Emergent: no Anesthetic plan: proceed Anesthesia type and monitoring: general GIVS and standard monitoring Results Review: All pre-operative results and documents have been reviewed as part of the pre- operative evaluation. Informed Consent: The patient's anesthetic plan and its attendant risks and benefits were discussed with the patient/family/POA. Questions were solicited and answers provided to the satisfaction of the patient/family/POA.
--- NOTE | 2024-08-21 10:22 | WPDHPUPDATE1 ---
History and Physical Update Update Date/Time: 08/21/24 09:22 History and Physical has been reviewed, including an updated exam of the patient. There are NO changes in the patient's condition. Risks, benefits, and alternatives have been discussed and questions answered. Patient agrees to proceed with procedure.
[2024-08-21 10:45] VITALS: BP 147/94; PULSE 63; RESP 14; O2SAT 96
[2024-08-21 11:00] VITALS: BP 143/90; PULSE 61; RESP 16; O2SAT 99
[2024-08-21 11:15] VITALS: BP 153/98; PULSE 60; RESP 12; TEMP 36.2; O2SAT 97
[2024-08-21 11:30] VITALS: BP 143/93; PULSE 61; RESP 11; TEMP 36.2; O2SAT 96
--- NOTE | 2024-08-21 11:32 | P.PCNCVR_ITS ---
Cardioversion Cardioversion Date of procedure: 08/21/24 Procedure: Synchronized cardioversion Pre-op diagnosis: Paroxysmal atrial fibrillation Post-op diagnosis: Same Indications: Paroxysmal atrial fibrillation Description of procedure: Patient has been taking long-term anticoagulation without missing any doses for many months now. Patient was attached to defibrillation pads and sedation was provided by Anesthesia Department. Once adequate sedation provided, synchronized cardioversion was performed using 200 joules. Patient remain in atrial fibrillation and energy level was turned up to 360 joules for 2nd synchronized cardioversion which did successfully convert the patient to sinus rhythm with 1st degree AV block. Sedation: Provided by Anesthesia Department Findings: Successful synchronized cardioversion with scientologist of sinus rhythm Conclusion: Follow-up with EP services for more durable rhythm control. Continue anticoagulation.
== END 2024-08-21 12:20 | disposition home or self-care (01) ==
PROVIDERS: PCP Family Medicine; Visit Provider Internal Medicine
PROC: 5A2204Z Restoration of Cardiac Rhythm, Single (ICD-10-PCS; principal; 2024-08-21 10:30)
DX: I48.0 Paroxysmal atrial fibrillation (principal); Z87.891 Personal history of nicotine dependence; E66.9 Obesity, unspecified; Z68.38 Body mass index [BMI] 38.0-38.9, adult
CPT/HCPCS: 36415; 80048; 83735; 92960; J2003; J2704; J7030